=== PATIENT | female | born 1990 | race Caucasian/White ===

== ENCOUNTER 2018-11-25 20:30 | Emergency (ER) | payer MEDICAID, OTHER ==
[~2018-11-25] VITALS: Ht 165.1 cm; Wt 70.8 kg
[2018-11-25] MEDS ORDERED: niCARdipine IV FOR DRIP 50 MG KIT ONE (20:46)
[2018-11-25] MEDS ORDERED: NS (IVPB) 250 ML ONE (20:46)
[2018-11-25] MEDS ORDERED: morphine INJ 10 MG/ML 1ML (SYR OR VIAL) ONE (20:51)
[2018-11-25] MEDS ORDERED: morphine INJ 10 MG/ML 1ML (SYR OR VIAL) IVP STA (20:54)
[2018-11-25 21:02] LABS: BASOPHILS % (AUTO) 0 % (0-10); EOSINOPHILS % (AUTO) 0 % (0-10); HEMATOCRIT 38 % (35-52); HEMOGLOBIN 11.7 G/DL (11.5-16.0); LYMPHOCYTES # (AUTO) 1.2 X 10^3 (1.0-4.0); LYMPHOCYTES % (AUTO) 8 % (12-44); MEAN CORPUSCULAR HEMOGLOBIN 23 PG (25-34); MEAN CORPUSCULAR HGB CONC 31 G/DL (32-36); MEAN CORPUSCULAR VOLUME 73 FL (80-99); MEAN PLATELET VOLUME 10.5 FL (7.4-10.4); MONOCYTES # (AUTO) 0.4 X 10^3 (0.0-1.0); MONOCYTES % (AUTO) 3 % (0-12); NEUTROPHILS # (AUTO) 14.4 X 10^3 (1.8-7.8); NEUTROPHILS % (AUTO) 90 % (42-75); PLATELET COUNT 530 10^3/uL (130-400); RED CELL DISTRIBUTION WIDTH 17.2 % (10.0-14.5)
--- NOTE | 2018-11-25 21:05 | ED Cough/URI ---
General Chief Complaint: Respiratory Problems Stated Complaint: SOA - FEET/HANDS SWELLING Nursing Triage Note: pt verbalized short of breath, lower extremity swelling, states due to elevated blood pressure. states x 1.5 weeks. Sepsis Screen: No Definite Risk Source: patient Exam Limitations: no limitations History of Present Illness Date Seen by Provider: Nov 25, 2018 Time Seen by Provider: 21:02 Initial Comments To ER or come in by her mother with reports of swelling in her feet for the past week, elevated blood pressure, shortness of breath. She states that she has kidney failure, congestive heart failure. She is on Imdur because she recently failed a stress test. She states that her blood pressure has been in the 260/100 range for many years leading to cardiomyopathy. She follows with Dr. Morales in [place]. She states that her chronic pain causes her blood pressure to spike and no one will treat her chronic pain. Timing/Duration: constant Severity/Quality: moderate Associated Symptoms: shortness of breath Allergies and Home Medications Allergies Coded Allergies: NSAIDS (Non-Steroidal Anti-Inflamma (Verified Allergy, Unknown, 11/25/18) Patient Home Medication List Home Medication List Reviewed: Yes Review of Systems Review of Systems Constitutional: see HPI EENTM: see HPI Respiratory: no symptoms reported, short of breath Cardiovascular: see HPI; No chest pain; edema, palpitations Genitourinary: no symptoms reported Musculoskeletal: no symptoms reported Skin: no symptoms reported Psychiatric/Neurological: No Symptoms Reported Hematologic/Lymphatic: No Symptoms Reported Immunological/Allergic: no symptoms reported Past Nastqal-Kucoys-Lrjrwg Hx Patient Social History Recent Foreign Travel: No Contact w/Someone Who Travel: No Recent Infectious Disease Expo: No Physical Exam Vital Signs - First Documented 11/25/18 20:41 Temp 98.2 Pulse 114 Resp 18 B/P (MAP) 128/86 (100) Pulse Ox 100 O2 Delivery Room Air Capillary Refill : Less Than 3 Seconds Height: 5'5.00" Weight: 156lbs. oz. 70.414312nl; BMI Method:Estimated General Appearance: WD/WN, no apparent distress, other (on each of 3 different readings, the systolic is unmeasurable high, the diastolic measures between 203 and 208. Patient states that she has a history of this and when given pain medication and her blood pressure drops rapidly. I'll entertain this idea briefly and give 1 dose of pain medication (4 mg morphine) and evaluate response.) Eyes: Bilateral Eye Normal Inspection, Bilateral Eye PERRL, Bilateral Eye EOMI HEENT: PERRL/EOMI, normal ENT inspection, other (there is no jugular vein distention. Lung sounds are diminished but there is no obvious crackles or pink frothy sputum. She speaks in full sentences) Respiratory: no respiratory distress, no accessory muscle use Extremities: normal range of motion, non-tender, other (2+ pitting edema) Neurologic/Psychiatric: alert, normal mood/affect, oriented x 3 Skin: normal color, warm/dry Progress/Results/Core Measures Suspected Sepsis Recent Fever Within 48 Hours: No Infection Criteria Present: None New/Unexplained Altered Menta: No Sepsis Screen: No Definite Risk SIRS Temperature:98.2 Pulse: 114 Respiratory Rate: 18 Laboratory Tests 11/25/18 20:44: White Blood Count 16.0H Blood Pressure 128 /86 Mean: 100 Laboratory Tests 11/25/18 20:44: Creatinine 3.03H, Platelet Count 530H, Total Bilirubin 0.8 Results/Orders Lab Results Laboratory Tests Test 11/25/18 20:44 Range/Units White Blood Count 16.0 H 4.3-11.0 10^3/uL Red Blood Count 5.21 4.35-5.85 10^6/uL Hemoglobin 11.7 11.5-16.0 G/DL Hematocrit 38 35-52 % Mean Corpuscular Volume 73 L 80-99 FL Mean Corpuscular Hemoglobin 23 L 25-34 PG Mean Corpuscular Hemoglobin Concent 31 L 32-36 G/DL Red Cell Distribution Width 17.2 H 10.0-14.5 % Platelet Count 530 H 130-400 10^3/uL Mean Platelet Volume 10.5 H 7.4-10.4 FL Neutrophils (%) (Auto) 90 H 42-75 % Lymphocytes (%) (Auto) 8 L 12-44 % Monocytes (%) (Auto) 3 0-12 % Eosinophils (%) (Auto) 0 0-10 % Basophils (%) (Auto) 0 0-10 % Neutrophils # (Auto) 14.4 H 1.8-7.8 X 10^3 Lymphocytes # (Auto) 1.2 1.0-4.0 X 10^3 Monocytes # (Auto) 0.4 0.0-1.0 X 10^3 Eosinophils # (Auto) 0.0 0.0-0.3 10^3/uL Basophils # (Auto) 0.0 0.0-0.1 10^3/uL Neutrophils % (Manual) 94 % Lymphocytes % (Manual) 4 % Monocytes % (Manual) 2 % Eosinophils % (Manual) 0 % Basophils % (Manual) 0 % Nucleated Red Blood Cells 1 Polychromasia SLIGHT Hypochromasia SLIGHT Anisocytosis SLIGHT Microcytosis SLIGHT Sodium Level 132 L 135-145 MMOL/L Potassium Level 3.6 3.6-5.0 MMOL/L Chloride Level 97 L 98-107 MMOL/L Carbon Dioxide Level 19 L 21-32 MMOL/L Anion Gap 16 H 5-14 MMOL/L Blood Urea Nitrogen 49 H 7-18 MG/DL Creatinine 3.03 H 0.60-1.30 MG/DL Estimat Glomerular Filtration Rate 19 BUN/Creatinine Ratio 16 Glucose Level 160 H 70-105 MG/DL Calcium Level 9.7 8.5-10.1 MG/DL Corrected Calcium 10.4 H 8.5-10.1 MG/DL Total Bilirubin 0.8 0.1-1.0 MG/DL Aspartate Amino Transf (AST/SGOT) 42 H 5-34 U/L Alanine Aminotransferase (ALT/SGPT) 40 0-55 U/L Alkaline Phosphatase 82 40-136 U/L Troponin I 0.255 H <0.028 NG/ML B-Type Natriuretic Peptide 08322.6 H <100.0 PG/ML Total Protein 6.7 6.4-8.2 GM/DL Albumin 3.1 L 3.2-4.5 GM/DL Thyroid Stimulating Hormone (TSH) 2.56 0.35-4.94 UIU/ML Free Thyroxine 1.12 0.70-1.48 NG/DL Serum Test, Qualitative NEGATIVE NEGATIVE My Orders Orders - HATTIE PRESTON APRN Morphine Injection (Morphine Injection (11/25/18 20:54) Cbc With Automated Diff (11/25/18 20:54) Comprehensive Metabolic Panel (11/25/18 20:54) Troponin I (11/25/18 20:54) BNP (11/25/18 20:54) Hcg,Qualitative Serum (11/25/18 20:54) Thyroid Stimulating Hormone (11/25/18 20:54) Free T4 (Free Thyroxine) (11/25/18 20:54) Drug Screen Stat (Urine) (11/25/18 20:54) Morphine Injection (Morphine Injection (11/25/18 20:51) Manual Differential (11/25/18 20:44) Ns (Ivpb) (Sodium C... W/Diltiazem Iv Fo (11/25/18 21:30) Ct Head Wo (11/25/18 21:20) Chest 1 View, Ap/Pa Only (11/25/18 21:20) Ekg Tracing (11/25/18 20:30) Furosemide Injection (Lasix Injection) (11/25/18 21:45) Ns (Ivpb) (Sodium C... W/Nicardipine Iv (11/25/18 22:00) Vanillymandelic Acid Random Ur (11/25/18 22:32) Metanephrines Plasma (11/25/18 22:34) Iv Heplock-Insert (Order) (11/25/18 22:37) Medications Given in ED Current Medications Medications Dose Ordered Sig/Nathaly Route Start Time Stop Time Status Last Admin Dose Admin Furosemide 40 mg ONCE ONCE IVP 11/25/18 21:45 11/25/18 21:46 DC 11/25/18 21:51 40 MG Vital Signs/I&O 11/25/18 20:41 Temp 98.2 Pulse 114 Resp 18 B/P (MAP) 128/86 (100) Pulse Ox 100 O2 Delivery Room Air Capillary Refill : Less Than 3 Seconds Blood Pressure Mean: 100 Diagnostic Imaging Diagonstic Imaging: Xray, CT Plain Films/CT/US/NM/MRI: chest Comments NAME: WARREN CASTRO [facility] REC#: [id number] PT STATUS: REG ER : 1990 PHYSICIAN: HATTIE PRESTON APRN ADMIT DATE: 11/25/18/ER Draft Date of Exam:11/25/18 CT HEAD WO PROCEDURE: CT head without contrast. TECHNIQUE: Multiple contiguous axial images were obtained through the brain without the use of intravenous contrast. Auto Exposure Controls were utilized during the CT exam to meet ALARA standards for radiation dose reduction. INDICATION: Hypertension. No priors. There is no intracerebral hemorrhage. There is no hydrocephalus, edema, mass or mass effect. Basilar cisterns are patent and there are no findings of an elevation to the intracranial pressures. Orbits, sinuses, and calvarium appeared nonacute. IMPRESSION: No hemorrhage, edema or acute appearing abnormalities. Dictated on workstation # [id number] Dict: 11/25/182138 Trans: 11/25/182141 TAWANA [id number] Interpreted by: JOSE MACIAS Electronically signed by: NAME: WARREN CASTRO [facility] REC#: [id number] PT STATUS: REG ER : 1990 PHYSICIAN: HATTIE PRESTON APRN ADMIT DATE: 11/25/18/ER Draft Date of Exam:11/25/18 CHEST 1 VIEW, AP/PA ONLY INDICATION: Hypertension FINDINGS: The lungs clear. The heart and vessels normal. There is no effusion or pneumothorax. IMPRESSION: No acute appearing abnormality Dictated on workstation # [id number] Dict: 11/25/182134 Trans: 11/25/182138 TAWANA [id number] Interpreted by: JOSE MACIAS Electronically signed by: Departure Communication (Admissions) 2123-blood pressure is 257/199 10 minutes after 4 mg of morphine. Cardene drip started at 5 mg an hour. 2199-Cardene drip has the pressure at 168/110. I'll have the nurses back off on the drip just a bit, I would like the systolic around 180. I spoke with Dr. Patterson, hospitalist at [facility]. She accepts the patient to the TCU floor. 2231-Cardene drip has been a 2.5 mg an hour. Despite this blood pressure is still dropping at 138/98. We will stop the Cardene drip. Given this brief spike in blood pressure and heart rate, pheochromocytoma would be within the differential. 2239-care turned over to Dr. Montague pending transfer to [facility]. Impression Primary Impression: Hypertensive urgency Disposition: XF SHT-TRM HOSP Condition: Stable Departure-Patient Inst. Referrals: NO,LOCAL PHYSICIAN (PCP/Family) Primary Care Physician HATTIE PRESTON APRN Nov 25, 2018 21:05
--- NOTE | 2018-11-25 21:09 | NUR ---
Morphine given @ 2058. After 10 minutes pt now rates pain 06/07. Reports decrease in headache. Bp @ this time 246/199. Provider notified.
[2018-11-25 21:19] LABS: ALBUMIN 3.1 GM/DL (3.2-4.5); BILIRUBIN,TOTAL 0.8 MG/DL (0.1-1.0); CALCIUM 9.7 MG/DL (8.5-10.1); CREATININE SERUM 3.03 MG/DL (0.60-1.30); POTASSIUM 3.6 MMOL/L (3.6-5.0); TOTAL PROTEIN 6.7 GM/DL (6.4-8.2)
[2018-11-25] MEDS ORDERED: DILTIAZEM IV FOR DRIP 125 MG in NS (IVPB) 100 ML IV SCH (21:30)
[2018-11-25 21:31] LABS: ANISOCYTOSIS SLIGHT; BASOPHILS % (MANUAL) 0 %; EOSINOPHILS % (MANUAL) 0 %; HYPOCHROMASIA SLIGHT; LYMPHOCYTES % (MANUAL) 4 %; MICROCYTOSIS SLIGHT; MONOCYTES % (MANUAL) 2 %; NEUTROPHILS % (MANUAL) 94 %; NUCLEATED RED BLOOD CELLS 1; POLYCHROMASIA SLIGHT
--- NOTE | 2018-11-25 21:40 | Diagnostic Imaging Report ---
INDICATION: Hypertension FINDINGS: The lungs clear. The heart and vessels normal. There is no effusion or pneumothorax. IMPRESSION: No acute appearing abnormality Dictated by: Dictated on workstation # [id number]
--- NOTE | 2018-11-25 21:43 | Diagnostic Imaging Report ---
PROCEDURE: CT head without contrast. TECHNIQUE: Multiple contiguous axial images were obtained through the brain without the use of intravenous contrast. Auto Exposure Controls were utilized during the CT exam to meet ALARA standards for radiation dose reduction. INDICATION: Hypertension. No priors. There is no intracerebral hemorrhage. There is no hydrocephalus, edema, mass or mass effect. Basilar cisterns are patent and there are no findings of an elevation to the intracranial pressures. Orbits, sinuses, and calvarium appeared nonacute. IMPRESSION: No hemorrhage, edema or acute appearing abnormalities. Dictated by: Dictated on workstation # [id number]
[2018-11-25 21:45] LABS: FREE T4 (FREE THYROXINE) 1.12 NG/DL (0.70-1.48)
[2018-11-25] MEDS ORDERED: FUROSEMIDE 40 MG/4 ML INJ (LASIX) IVP ONE (21:45)
--- NOTE | 2018-11-25 21:50 | NUR ---
IV cardene decreased to 2.5mg/hr (12.5ml/hr) per provider order. Current BP 226/172
[2018-11-25] MEDS ORDERED: niCARdipine IV 50 MG in NS (IVPB) 230 ML IV SCH (22:00)
--- NOTE | 2018-11-25 22:00 | NUR ---
Per provider order Cardene increased to initial starting dose of 5mg/hr (25ml/hr).
--- NOTE | 2018-11-25 22:18 | NUR ---
Cardene decreased to 2.5mg/hr per provider order.
--- NOTE | 2018-11-25 22:30 | NUR ---
Cardene drip stopped per provider order d/t BP 135/98.
[2018-11-25 22:58] LABS: AMPHETAMINE SCREEN, URINE NEGATIVE (NEGATIVE); BARBITURATE SCREEN URINE NEGATIVE (NEGATIVE); BENZODIAZEPINES SCREEN URINE POSITIVE (NEGATIVE); CANNABINOID SCREEN, URINE NEGATIVE (NEGATIVE); COCAINE SCREEN URINE NEGATIVE (NEGATIVE); METHAMPHETAMINE SCREEN URINE S NEGATIVE (NEGATIVE); OPIATE SCREEN URINE POSITIVE (NEGATIVE); TRICYCLIC ANTIDEPRESSANTS SCRE NEGATIVE (NEGATIVE)
[2018-11-25 22:59] LABS: METHADONE STAT NEGATIVE (NEGATIVE); OXYCODONE STAT POSITIVE (NEGATIVE); PROPOXYPHENE STAT NEGATIVE (NEGATIVE)
--- NOTE | 2018-11-25 23:42 | NUR ---
Contacted cc ems ship manager @ [phone]. Contacted cc dispatch for request cc ems pt transfer to [facility].
--- NOTE | 2018-11-25 23:55 | NUR ---
Pt report given to RADHA Velasco @ [facility]. Upon arrival to [facility] pt to U#[id number].
[2018-11-26 00:35] VITALS: BP 184/131
== END 2018-11-26 00:35 | disposition short-term general hospital (02) ==
LOC: ER 20:33
DX: I16.0 Hypertensive urgency (principal); I11.0 Hypertensive heart disease with heart failure; I50.9 Heart failure, unspecified; Z88.6 Allergy status to analgesic agent
CPT/HCPCS: 36415; 70450; 71045; 80053; 80306; 83835; 83880; 84439; 84443; 84484; 84585; 84703; 85007; 85027; 93005; 96374; 96375

== ENCOUNTER 2018-12-22 02:55 | Emergency (ER) | payer MEDICAID ==
[~2018-12-22] VITALS: Ht 165.1 cm; Wt 72.6 kg
[2018-12-22] MEDS ORDERED: ASPIRIN 81 MG CHEW (CHILDREN'S ASA) PO ONE (03:15)
--- NOTE | 2018-12-22 03:18 | ED Cardiac General ---
History of Present Illness General Chief Complaint: Respiratory Problems Stated Complaint: SOB Source: patient History of Present Illness Date Seen by Provider: Dec 22, 2018 Time Seen by Provider: 02:56 Initial Comments PT ARRIVES VIA POV FROM HOME IN [place] PT WITH MULTIPLE COMPLAINTS C/O SHORTNESS OF BREATH, WITH ORTHOPNEA C/O "HEAD PAIN AND IT'S GONE ALL THE WAY DOWN TO MY LEGS" -STATES SHE HAS "CHRONIC MIGRAINES" AND "HAS TO TAKE HYDROCODONE TO CONTROL THE PAIN" C/O SLIGHT CHEST PAIN C/O CHRONIC LEG SWELLING NO COUGH NO FEVER PT STATES "I HAVE HEART FAILURE AND RENAL FAILURE" STATES "ALL OF HER DOCTORS ARE AT [facility]" "BECAUSE I CAN'T GO TO [place] ANYMORE--THEY CAN'T DO ANYTHING-THEY THINK I'M LYING" PT IS NOT ON DIALYSIS HAS HISTORY OF HTN WELL. STATES "MY BLOOD PRESSURE GOES UP BECAUSE OF THE PAIN AND NO ONE WILL TREAT MY PAIN" --STATES HER CHRONIC PAIN IS HER LEFT KNEE AND HEADACHES---HAS NOT SEEN NEUROLOGIST FOR HEADACHES OR DOG BATHER FOR HER KNEE PAIN NOR HAS SHE SEE REPORTING MANAGER. PT HERE 11/25/18 FOR HYPERTENSIVE EMERGENCY, WITH UNMEASURABLE SYSTOLIC BP, AND DIASTOLIC OF 199-206--SEE THAT CHART FOR DETAILS PT WAS TRANSFERRED TO [facility] AT THAT TIME. PCP: NONE OXIDE FURNACE TENDER: DR. MCKENNA AT [facility] JACKSCREW WORKER: DR. QUIÑONES AT [facility] Allergies and Home Medications Allergies Coded Allergies: NSAIDS (Non-Steroidal Anti-Inflamma (Verified Allergy, Unknown, 11/25/18) Patient Home Medication List Home Medication List Reviewed: Yes Review of Systems Review of Systems Constitutional: no symptoms reported; No chills, No diaphoresis, No fever Respiratory: See HPI; Denies Cough; Orthopnea, Shortness of Air Cardiovascular: Chest Pain, Edema; Denies Lightheadedness, Denies Syncope Gastrointestinal: No Symptoms Reported Genitourinary: No Symptoms Reported, Other (LMP--NONE--S/P ENDOMETRIAL ABLATION) Musculoskeletal: see HPI Skin: no symptoms reported Psychiatric/Neurological: See HPI, Anxiety, Headache; Denies Numbness, Denies Paresthesia, Denies Tingling, Denies Weakness Endocrine: No Symptoms Reported Hematologic/Lymphatic: No Symptoms Reported Past Gdgupgk-Lxbusy-Peixaf Hx Patient Social History Alcohol Use: Rarely Uses Recreational Drug Use: Yes (PERCOCET ABUSE--STATES "NOW THEY GIVE ME HYDROCODONES" ) Drug of Choice: PERCOCET ABUSE--PT STATES "NOW THEY GIVE ME HYDROCODONES" Smoking Status: Never a Smoker 2nd Hand Smoke Exposure: Yes Recent Foreign Travel: No Contact w/Someone Who Travel: No Recent Hopitalizations: Yes ([facility] August 2018) Seasonal Allergies Seasonal Allergies: Yes Past Medical History Surgeries: Yes (Endometrail ablation. Ovarian cyst removal ) Section Respiratory: Yes Pneumonia Currently Using CPAP: No Currently Using BIPAP: No Cardiac: Yes (CHF) Chronic Edema/Swelling, Hypertension, Irregular Heartbeat Neurological: Yes Headaches /Migraines : No Reproductive Disorders: Yes (ENDOMETRIAL ABLATION) Female Reproductive Disorders: Ovarian Cyst Genitourinary: Yes Renal Failure Gastrointestinal: No Musculoskeletal: Yes (LEFT KNEE PAIN ) Endocrine: No HEENT: No Cancer: No Psychosocial: No Integumentary: No Blood Disorders: No Physical Exam Vital Signs Vital Signs - First Documented 12/22/18 12/22/18 02:56 05:30 Temp 97.8 Pulse 128 Resp 30 B/P (MAP) 117/96 (103) Pulse Ox 100 O2 Delivery Room Air O2 Flow Rate 2.00 Capillary Refill : Height, Weight, BMI Height: 5'5.00" Weight: 156lbs. oz. 70.428509pf; BMI Method:Estimated General Appearance: Anxious, Other (HYPERVENTILATING, TALKING VERY RAPIDLY, ANXIOUS, VERY DRAMATIC. THIS STOPS WHEN DISTRACTED, ALSO STOPS WHEN SHE IS TEXING/PLAYING ON PHONE DURING ER STAY. ) HEENT: PERRL/EOMI Neck: Normal Inspection; No Carotid Bruit, No JVD Respiratory: Normal Breath Sounds, No Accessory Muscle Use, No Respiratory Distress, Other (HYPERVENTILATING--STOPS WHEN DISTRACTED) Cardiovascular: No JVD, No Murmur, Normal Peripheral Pulses, Tachycardia Gastrointestinal: Non Tender, Soft Extremity: Normal Capillary Refill, Normal Range of Motion, Non Tender, No Calf Tenderness, Pedal Edema (1-2+ EDEMA BILATERALLY) Neurologic/Psychiatric: Alert, Oriented x3, No Motor/Sensory Deficits, dinkey locomotive operator II- XII Norm as Tested Skin: Normal Color, Warm/Dry Progress/Results/Core Measures Results/Orders Lab Results Laboratory Tests Test 12/22/18 03:00 12/22/18 03:44 Range/Units White Blood Count 13.5 H 4.3-11.0 10^3/uL Red Blood Count 5.95 H 4.35-5.85 10^6/uL Hemoglobin 12.4 11.5-16.0 G/DL Hematocrit 40 35-52 % Mean Corpuscular Volume 68 L 80-99 FL Mean Corpuscular Hemoglobin 21 L 25-34 PG Mean Corpuscular Hemoglobin Concent 31 L 32-36 G/DL Red Cell Distribution Width 20.5 H 10.0-14.5 % Platelet Count 383 130-400 10^3/uL Mean Platelet Volume 10.2 7.4-10.4 FL Neutrophils (%) (Auto) 87 H 42-75 % Lymphocytes (%) (Auto) 9 L 12-44 % Monocytes (%) (Auto) 3 0-12 % Eosinophils (%) (Auto) 0 0-10 % Basophils (%) (Auto) 0 0-10 % Neutrophils # (Auto) 11.8 H 1.8-7.8 X 10^3 Lymphocytes # (Auto) 1.3 1.0-4.0 X 10^3 Monocytes # (Auto) 0.4 0.0-1.0 X 10^3 Eosinophils # (Auto) 0.0 0.0-0.3 10^3/uL Basophils # (Auto) 0.0 0.0-0.1 10^3/uL Prothrombin Time 14.9 H 12.2-14.7 SEC INR Comment 1.1 0.8-1.4 Activated Partial Thromboplast Time 38 H 24-35 SEC Sodium Level 135 135-145 MMOL/L Potassium Level 2.8 L 3.6-5.0 MMOL/L Chloride Level 97 L 98-107 MMOL/L Carbon Dioxide Level 22 21-32 MMOL/L Anion Gap 16 H 5-14 MMOL/L Blood Urea Nitrogen 25 H 7-18 MG/DL Creatinine 2.92 H 0.60-1.30 MG/DL Estimat Glomerular Filtration Rate 19 BUN/Creatinine Ratio 9 Glucose Level 130 H 70-105 MG/DL Calcium Level 9.4 8.5-10.1 MG/DL Corrected Calcium 10.0 8.5-10.1 MG/DL Magnesium Level 1.7 1.6-2.4 MG/DL Total Bilirubin 1.0 0.1-1.0 MG/DL Aspartate Amino Transf (AST/SGOT) 23 5-34 U/L Alanine Aminotransferase (ALT/SGPT) 12 0-55 U/L Alkaline Phosphatase 93 40-136 U/L Total Creatine Kinase 137 29-168 U/L Creatine Kinase MB 4.0 <6.6 NG/ML Myoglobin 267.7 H 10.0-92.0 NG/ML Troponin I 0.097 H <0.028 NG/ML B-Type Natriuretic Peptide 7892.2 H <100.0 PG/ML Total Protein 7.5 6.4-8.2 GM/DL Albumin 3.2 3.2-4.5 GM/DL TSH [place] Testing 3.13 0.35-4.94 UIU/ML Serum Alcohol < 10 <10 MG/DL Urine Color YELLOW Urine Clarity CLEAR Urine pH 6 5-9 Urine Specific [place] 1.020 1.016-1.022 Urine Protein 4+ NEGATIVE Urine Glucose (UA) NEGATIVE NEGATIVE Urine Ketones NEGATIVE NEGATIVE Urine Nitrite NEGATIVE NEGATIVE Urine Bilirubin NEGATIVE NEGATIVE Urine Urobilinogen NORMAL NORMAL MG/DL Urine Leukocyte Esterase 1+ H NEGATIVE Urine RBC (Auto) 4+ H NEGATIVE Urine RBC 10-25 H /HPF Urine WBC 5-10 H /HPF Urine Squamous Epithelial Cells 5-10 /HPF Urine Crystals NONE /LPF Urine Bacteria FEW H /HPF Urine Casts PRESENT /LPF Urine Hyaline Casts 5-10 H /LPF Urine Mucus MODERATE H /LPF Urine Culture Indicated YES Urine Opiates Screen POSITIVE H NEGATIVE Urine Oxycodone Screen NEGATIVE NEGATIVE Urine Methadone Screen NEGATIVE NEGATIVE Urine Propoxyphene Screen NEGATIVE NEGATIVE Urine Barbiturates Screen NEGATIVE NEGATIVE Ur Tricyclic Antidepressants Screen NEGATIVE NEGATIVE Urine Phencyclidine Screen NEGATIVE NEGATIVE Urine Amphetamines Screen NEGATIVE NEGATIVE Urine Methamphetamines Screen NEGATIVE NEGATIVE Urine Benzodiazepines Screen NEGATIVE NEGATIVE Urine Cocaine Screen NEGATIVE NEGATIVE Urine Cannabinoids Screen NEGATIVE NEGATIVE My Orders Orders - SHADE MORALES DO Ed Iv/Invasive Line Start (12/22/18 03:01) Ekg Tracing (12/22/18 03:01) O2 (12/22/18 03:01) Monitor-Rhythm Ecg Trace Only (12/22/18 03:01) Alcohol (12/22/18 03:01) BNP (12/22/18 03:01) Cbc With Automated Diff (12/22/18 03:01) Comprehensive Metabolic Panel (12/22/18 03:01) Creatine Kinase (12/22/18 03:01) Creatine Kinase Mb (12/22/18 03:01) Drug Screen Stat (Urine) (12/22/18 03:01) Magnesium (12/22/18 03:01) Protime With Inr (12/22/18 03:01) Partial Thromboplastin Time (12/22/18 03:01) Thyroid Analyzer (12/22/18 03:01) Ua Culture If Indicated (12/22/18 03:01) Myoglobin Serum (12/22/18 03:01) Troponin I (12/22/18 03:01) Chest 1 View, Ap/Pa Only (12/22/18 03:01) Aspirin Chewable Tablet (Baby Aspirin Ch (12/22/18 03:15) Ondansetron Injection (Zofran Injectio (12/22/18 03:45) Urine Culture (12/22/18 03:44) Ct Chest Wo (12/22/18 04:18) Ns (Ivpb) (Sodium C... W/Nicardipine Iv (12/22/18 04:30) Nicardipine Iv For Drip (Cardene I.V. (O (12/22/18 04:16) Metoprolol Tartrate Injection (Lopressor (12/22/18 04:30) Ns (Ivpb) (Sodium Chloride 0.9%) (12/22/18 04:17) Lorazepam Injection (Ativan Injection) (12/22/18 05:15) Furosemide Injection (Lasix Injection) (12/22/18 05:15) Nitroglycerin Ointment (Nitrobid Ointme (12/22/18 05:15) Hydrocodone/Apap 10/325 Tablet (Lortab 1 (12/22/18 05:15) Potassium Chloride (Tablet) (Klor Con Ta (12/22/18 06:00) Potassium Chloride (Tablet) (Klor Con Ta (12/22/18 06:00) Medications Given in ED Current Medications Medications Dose Ordered Sig/Nathaly Route Start Time Stop Time Status Last Admin Dose Admin Acetaminophen/ Hydrocodone Bitart 1 ea ONCE ONCE PO 12/22/18 05:15 12/22/18 05:16 DC 12/22/18 05:15 1 EA Aspirin 324 mg ONCE ONCE PO 12/22/18 03:15 12/22/18 03:16 DC 12/22/18 03:19 324 MG Furosemide 80 mg ONCE ONCE IVP 12/22/18 05:15 12/22/18 05:16 DC 12/22/18 05:16 80 MG Lorazepam 2 mg ONCE ONCE IVP 12/22/18 05:15 12/22/18 05:16 DC 12/22/18 05:16 2 MG Metoprolol Tartrate 5 mg ONCE ONCE IV 12/22/18 04:30 12/22/18 04:32 DC 12/22/18 04:32 5 MG Nitroglycerin 1 inch ONCE ONCE TOP 12/22/18 05:15 12/22/18 05:16 DC 12/22/18 05:16 1 INCH Ondansetron HCl 8 mg ONCE ONCE IVP 12/22/18 03:45 12/22/18 03:47 DC 12/22/18 03:52 8 MG Potassium Chloride 40 meq ONCE ONCE PO 12/22/18 06:00 12/22/18 06:20 DC 12/22/18 06:08 40 MEQ Vital Signs/I&O 12/22/18 12/22/18 12/22/18 02:56 04:36 05:30 Temp 97.8 Pulse 128 96 Resp 30 30 B/P (MAP) 117/96 (103) 240/192 Pulse Ox 100 100 O2 Delivery Room Air Nasal Cannula O2 Flow Rate 2.00 Progress Progress Note : Progress Note BP READINGS EXTREMELY VARIABLE FROM ONE ARM TO THE OTHER AND FROM MINUTE TO MINUTE IN THE SAME ARM, ON ARRIVAL. THEN DURING COURSE OF ER STAY, PT IS MOVING ALL OVER, ON AND OFF THE BED AND LEANING ACROSS THE BED, RESTING ON HER ARMS AND ELBOWS, ETC. SOBBING BUT NO TEARS BLOOD PRESSURES CONSISTENTLY HIGH NOW--250'S/190'S --LOPRESSOR GIVEN AND STARTED ON CARDENE DRIP. PT STATES "THE ONLY THING THAT WILL GET IT TO COME DOWN IS PAIN MEDICATION" STATES SHE HURTS ''ALL OVER" GIVEN MEDICATIONS FOR ANXIETY, GIVEN HYDROCODONE GIVEN LASIX AND NITROPASTE FOR CHF PAIN AND SHORTNESS OF BREATH IMPROVED. BP DOWN TO 140'S/100'S AT TIME OF TRANSFER PT FEELING MUCH BETTER Initial ECG Impression Date: Dec 22, 2018 Initial ECG Impression Time: 03:12 Initial ECG Rate: 117 Initial ECG Rhythm: S.Tach Diagnostic Imaging Comments CXR--MILD CARDIOMEGALY, MINIMAL VASCULAR CONGESTION--PENDING RADIOLOGIST REVIEW CT CHEST--MILD CARDIOMEGALY WITH MODERATE BILATERAL PLEURAL EFFUSIONS, TRACE PERICARDIAL EFFUSION, 4.3 CM ASCENDING AORTIC ANEURYSM PER [facility] VIA FAX AT 0524 Reviewed: Reviewed by Nm Departure Communication (Admissions) 0529--CALLED [facility], HAVE BEDS. PAGING HOSPITALIST. 0555--SPOKE WITH DR. JOHNSON, ACCEPTS PT FOR ADMIT TO ICU, NO ADDITIONAL RECOMMENDATIONS AT THIS TIME. Impression Primary Impression: Hypertensive crisis Additional Impressions: Elevated troponin Chronic renal failure Ascending aortic aneurysm ACUTE ON CHRONIC CHF Anxiety Chronic prescription opiate use SVT (supraventricular tachycardia) Disposition: 02 XFER SHT-TRM HOSP Condition: Improved Transfer Transfer Facility: [facility] Method of Transfer: EMS Departure-Patient Inst. Referrals: NO,LOCAL PHYSICIAN (PCP/Family) Primary Care Physician SHADE MORALES DO Dec 22, 2018 03:18
[2018-12-22 03:22] LABS: BASOPHILS % (AUTO) 0 % (0-10); EOSINOPHILS % (AUTO) 0 % (0-10); HEMATOCRIT 40 % (35-52); HEMOGLOBIN 12.4 G/DL (11.5-16.0); LYMPHOCYTES # (AUTO) 1.3 X 10^3 (1.0-4.0); LYMPHOCYTES % (AUTO) 9 % (12-44); MEAN CORPUSCULAR HEMOGLOBIN 21 PG (25-34); MEAN CORPUSCULAR HGB CONC 31 G/DL (32-36); MEAN CORPUSCULAR VOLUME 68 FL (80-99); MEAN PLATELET VOLUME 10.2 FL (7.4-10.4); MONOCYTES # (AUTO) 0.4 X 10^3 (0.0-1.0); MONOCYTES % (AUTO) 3 % (0-12); NEUTROPHILS # (AUTO) 11.8 X 10^3 (1.8-7.8); NEUTROPHILS % (AUTO) 87 % (42-75); PLATELET COUNT 383 10^3/uL (130-400); RED CELL DISTRIBUTION WIDTH 20.5 % (10.0-14.5); WHITE BLOOD COUNT 13.5 10^3/uL (4.3-11.0)
[2018-12-22 03:27] LABS: INR 1.1 (0.8-1.4); PROTHROMBIN TIME PATIENT 14.9 SEC (12.2-14.7)
--- NOTE | 2018-12-22 03:30 | NUR ---
Provider notified of current BP of 253/198. Addendum: 12/22/18 at 0332 by SANDRA See attached trending BP's.
[2018-12-22 03:37] LABS: ALANINE AMINOTRANSFERASE 12 U/L (0-55); ALBUMIN 3.2 GM/DL (3.2-4.5); ALKALINE PHOSPHATASE 93 U/L (40-136); BUN/CREATININE RATIO 9; CALCIUM 9.4 MG/DL (8.5-10.1); CARBON DIOXIDE 22 MMOL/L (21-32); CHLORIDE 97 MMOL/L (98-107); CREATINE KINASE 137 U/L (29-168); CREATININE SERUM 2.92 MG/DL (0.60-1.30); GFR ESTIMATED 19; GLUCOSE 130 MG/DL (70-105); MAGNESIUM 1.7 MG/DL (1.6-2.4); POTASSIUM 2.8 MMOL/L (3.6-5.0); SODIUM 135 MMOL/L (135-145); TOTAL PROTEIN 7.5 GM/DL (6.4-8.2)
[2018-12-22] MEDS ORDERED: ONDANSETRON 4 MG/2 ML (SDV) Z0FRAN IVP ONE (03:45)
[2018-12-22 03:57] LABS: TSH (THYROID ANALYZER) 3.13 UIU/ML (0.35-4.94)
[2018-12-22 04:08] LABS: BILIRUBIN,URINE NEGATIVE (NEGATIVE); CLARITY,URINE CLEAR; COLOR,URINE YELLOW; GLUCOSE, URINE (UA) NEGATIVE (NEGATIVE); KETONES,URINE NEGATIVE (NEGATIVE); LEUKOCYTE ESTERASE ,URINE 1+ (NEGATIVE); NITRITE,URINE NEGATIVE (NEGATIVE); PH,URINE 6 (5-9); PROTEIN,URINE 4+ (NEGATIVE); UROBILINOGEN,URINE NORMAL (NORMAL)
[2018-12-22] MEDS ORDERED: niCARdipine IV FOR DRIP 50 MG KIT ONE (04:16)
[2018-12-22 04:17] LABS: BACTERIA,URINE FEW /HPF
[2018-12-22] MEDS ORDERED: NS (IVPB) 250 ML ONE (04:17)
[2018-12-22 04:23] LABS: AMPHETAMINE SCREEN, URINE NEGATIVE (NEGATIVE); BARBITURATE SCREEN URINE NEGATIVE (NEGATIVE); BENZODIAZEPINES SCREEN URINE NEGATIVE (NEGATIVE); CANNABINOID SCREEN, URINE NEGATIVE (NEGATIVE); COCAINE SCREEN URINE NEGATIVE (NEGATIVE); METHADONE STAT NEGATIVE (NEGATIVE); METHAMPHETAMINE SCREEN URINE S NEGATIVE (NEGATIVE); OPIATE SCREEN URINE POSITIVE (NEGATIVE); OXYCODONE STAT NEGATIVE (NEGATIVE); PROPOXYPHENE STAT NEGATIVE (NEGATIVE); TRICYCLIC ANTIDEPRESSANTS SCRE NEGATIVE (NEGATIVE)
[2018-12-22] MEDS ORDERED: niCARdipine IV 50 MG in NS (IVPB) 230 ML IV SCH (04:30)
[2018-12-22] MEDS ORDERED: meTOprolol 5 MG/5 ML (LOPRESSOR) VIAL IV ONE (04:30)
--- NOTE | 2018-12-22 04:35 | NUR ---
Pt noted to be restless, tearful, and moaning in pain. Provider notified of pt continued request for pain medication.
[2018-12-22] MEDS ORDERED: HYDROcodone/APAP 10 MG/325 MG (LORTAB) TAB PO ONE (05:15)
[2018-12-22] MEDS ORDERED: LORazepam INJ 2 MG/ML (ATIVAN) VIAL IVP ONE (05:15)
[2018-12-22] MEDS ORDERED: NITROGLYCERIN 2% OINT 1 GM UNIT DOSE PACKET TOP ONE (05:15)
[2018-12-22] MEDS ORDERED: FUROSEMIDE 40 MG/4 ML INJ (LASIX) IVP ONE (05:15)
[2018-12-22] MEDS ORDERED: KCL 10 MEQ TAB (MICRO K) PO ONE ×2 (06:00)
--- NOTE | 2018-12-22 06:21 | NUR ---
Contacted [facility] mba internship for request ems transfer to [facility]. Contacted [facility] bar gauger and lubricator tender dept. for request ems transfer to [facility].
--- NOTE | 2018-12-22 06:24 | NUR ---
Pt report called to RADHA Cortez @ [facility]. Dana voices no further questions or concerns regarding pt transfer.
--- NOTE | 2018-12-22 06:39 | NUR ---
Cardene infusion decreased to 2.5mg/hr per provider order. Current BP 148/106
[2018-12-22 06:57] VITALS: BP 140/108
--- NOTE | 2018-12-22 07:55 | Diagnostic Imaging Report ---
Indication: Shortness of air, chest pain Comparison: 11/25/2018 Technique: Single radiograph of the chest dated 12/05/2018. Findings: The cardiac silhouette is upper limits of normal in size. No significant pulmonary vascular congestion. Mild left basilar pulmonary opacities are present. Otherwise, the lungs appear clear. Trace left pleural effusion. No significant right pleural effusion. No pneumothorax. No acute osseous abnormality. Surgical clips within right upper quadrant of the abdomen. Impression: Minimal left basilar atelectasis and/or pneumonitis. This is associated with trace left pleural effusion. Dictated by: Dictated on workstation # [id number]
--- NOTE | 2018-12-22 08:51 | Diagnostic Imaging Report ---
PROCEDURE: CT chest without contrast. TECHNIQUE: Multiple contiguous axial images were obtained through the chest without the use of intravenous contrast. Auto Exposure Controls were utilized during the CT exam to meet ALARA standards for radiation dose reduction. INDICATION: Shortness of breath and chest pain. COMPARISON: No comparison available. FINDINGS: The left ventricle appears mildly dilated. There is a mild ascending aortic aneurysm measuring up to 4.5 cm. A trace amount of pericardial fluid is noted. No axillary or supraclavicular lymphadenopathy. Prominent mediastinal lymph nodes are not enlarged. There are small to moderate bilateral pleural effusions with overlying atelectasis. No edema or pneumonia. No suspicious pulmonary nodules. Limited views of the upper abdomen reveal changes of cholecystectomy. IMPRESSION: 1. Mildly dilated left ventricle and mild ascending aortic aneurysm. In a patient of this age, I would wonder if this patient has a bicuspid aortic valve leading to the aortic aneurysm. 2. Small to moderate bilateral pleural effusions . Dictated by: Dictated on workstation # [id number]
== END 2018-12-22 07:00 | disposition short-term general hospital (02) ==
LOC: EDUNIT# 02:55 → ER 02:57
DX: I16.9 Hypertensive crisis, unspecified (principal); R77.8 Other specified abnormalities of plasma proteins; I12.9 Hypertensive chronic kidney disease with stage 1 through stage 4 chronic kidney disease, or unspecified chronic kidney disease; N18.9 Chronic kidney disease, unspecified; I71.2 Thoracic aortic aneurysm, without rupture; I50.9 Heart failure, unspecified; F41.9 Anxiety disorder, unspecified; I47.1 Supraventricular tachycardia; G43.909 Migraine, unspecified, not intractable, without status migrainosus; Z79.891 Long term (current) use of opiate analgesic; Z88.6 Allergy status to analgesic agent; Z87.01 Personal history of pneumonia (recurrent)
CPT/HCPCS: 36415; 71045; 71250; 80053; 80306; 80320; 81000; 82550; 82553; 83735; 83874; 83880; 84443; 84484; 85025; 85610; 85730; 87088; 93005; 93041

== ENCOUNTER 2019-05-26 15:35 | Emergency (ER) | payer MEDICAID ==
[~2019-05-26] VITALS: Ht 165 cm; Wt 72.7 kg
[2019-05-26 15:59] LABS: BILIRUBIN,URINE NEGATIVE (NEGATIVE); CLARITY,URINE CLOUDY; COLOR,URINE YELLOW; GLUCOSE, URINE (UA) NEGATIVE (NEGATIVE); KETONES,URINE NEGATIVE (NEGATIVE); LEUKOCYTE ESTERASE ,URINE TRACE (NEGATIVE); NITRITE,URINE NEGATIVE (NEGATIVE); PROTEIN,URINE 3+ (NEGATIVE)
--- NOTE | 2019-05-26 16:00 | ED GI ---
General Chief Complaint: Abdominal/GI Problems Stated Complaint: ABD PAIN Nursing Triage Note: PATIENT AMBULATORY TO ER ROOM 5 WITH MOTHER. PT STATES SHE WAS SEEN AT [facility] TODAY AMD WAS SENT TO ER FOR ABDOMINAL PAIN AND HYPERTENSION. PT STATES PAIN BEGAN 3 DAYS AGO TO THE LEFT LOWER ABDOMEN THAT RADIATES INTO THE LOWER FLANK AREA. PATIENT ALSO STATES SHE HAS BURNING PAIN WITH URINATION. SHE HAS HAD NAUSEA AND VOMITING TODAY. PATIENT STATES SHE HAS A HISTORY OF KIDNEY FAILURE AND IS ON THE TRANSPLANT LIST. Sepsis Screen: No Definite Risk Source of Information: Patient Exam Limitations: Other (UNABLE TO VERIFY ALL OF PT'S MEDICAL PROBLEMS--ALL ARE VERBAL FROM PT, AND NONE OF HER DR'S ADMIT HERE. ) History of Present Illness Date Seen by Provider: May 26, 2019 Time Seen by Provider: 15:48 Initial Comments PT ARRIVES VIA POV--STATES SHE WAS SENT TO ER BY HER CHAIRMAN PRESIDENT AND CHIEF EXECUTIVE OFFICER, DR. JACKSON--HAD JUST BEEN TO HIS OFFICE HERE IN [facility] STATES SHE HAS BEEN HAVING LOWER ABDOMINAL PAIN RADIATING TO LEFT FLANK FOR THE LAST 3 DAYS STATES SHE HAS NOT BEEN ABLE TO SLEEP FOR 3 DAYS DUE TO PAIN C/O NAUSEA AND VOMITED X 2 TODAY NO DIARRHEA OR CONSTIPATION, HAD A NORMAL BM LAST NIGHT DOES NOT KNOW IF SHE HAS HAD FEVER, BUT HAS BEEN HOT AND COLD WITH SWEATS. C/O PAIN/ BURNING ON URINATION PT HAS HYDROCODONE FOR CHRONIC PAIN COMPLAINTS, BUT CLAIMS SHE HAS NOT TAKEN ANY SINCE Friday05/23/19, AND TOOK "1/2 OF A PERCOCET" YESTERDAY MORNING, OTHERWISE SHE HAS NOT TAKEN ANYTHING ELSE FOR PAIN PT HAS HAD KIDNEY STONES AND THIS IS SIMILAR PT STATES SHE HAS HISTORY OF CHRONIC RENAL FAILURE, LUPUS, CAD/WA, CVA, AND SEVERE HTN--BP WAS EXTREMELY HIGH AT CHAIRMAN PRESIDENT AND CHIEF EXECUTIVE OFFICER'S OFFICE, SO TOLD TO COME HERE. PT IS NOT ON DIALYSIS AND HAS NEVER BEEN PT STATES "MY BLOOD PRESSURE IS UP BECAUSE I'M IN PAIN" PCP: DR. WINTER EDWARDS CHAIRMAN PRESIDENT AND CHIEF EXECUTIVE OFFICER: DR JACKSON AT [facility] WITH [facility]: DR. MCKENNA AT [facility] PT LIVES IN [place] Allergies and Home Medications Allergies Coded Allergies: NSAIDS (Non-Steroidal Anti-Inflamma (Verified Allergy, Unknown, 11/25/18) Patient Home Medication List Home Medication List Reviewed: Yes Review of Systems Review of Systems Constitutional: see HPI, chills, diaphoresis, fever Respiratory: No Symptoms Reported; Denies Cough, Denies Shortness of Air Cardiovascular: No Symptoms Reported; Denies Chest Pain, Denies Edema, Denies Lightheadedness, Denies Palpitations, Denies Syncope Gastrointestinal: See HPI, Abdominal Pain; Denies Constipated, Denies Diarrhea; Nausea, Vomiting Genitourinary: See HPI, Burning, Flank Pain, Pain Musculoskeletal: see HPI, back pain Skin: no symptoms reported Psychiatric/Neurological: No Symptoms Reported Endocrine: No Symptoms Reported Hematologic/Lymphatic: No Symptoms Reported Past Arcpdhv-[id number]-Eeksmo Hx Patient Social History Recreational Drug Use: Yes (PERCOCET ABUSE-STATES "NOW THEY GIVE MY HYDROCODONES" ) Drug of Choice: PERCOCET ABUSE--PT STATES "NOW THEY GIVE ME HYDROCODONES" 2nd Hand Smoke Exposure: Yes Recent Foreign Travel: No Contact w/Someone Who Travel: No Recent Infectious Disease Expo: No Recent Hopitalizations: Yes (August 2018) Seasonal Allergies Seasonal Allergies: Yes Past Medical History Surgeries: Yes (ENDOMETRIAL ABLATION; OVARIAN CYST REMOVAL) Section Respiratory: Yes Pneumonia Currently Using CPAP: No Currently Using BIPAP: No Cardiac: Yes (CHF) Chronic Edema/Swelling, Coronary Artery Disease, Heart Attack, Hypertension, Irregular Heartbeat Neurological: Yes Headaches /Migraines, Stroke : No (ENDOMETRIAL ABLASION) Reproductive Disorders: Yes (ENDOMETRIAL ABLATION) Female Reproductive Disorders: Menstrual Problems, Ovarian Cyst Genitourinary: Yes Bladder Infection, Kidney Stones, Renal Failure Gastrointestinal: No Musculoskeletal: Yes (LEFT KNEE PAIN ) Endocrine: Yes Lupus HEENT: No Cancer: No Psychosocial: No Integumentary: No Blood Disorders: No Physical Exam Vital Signs Vital Signs - First Documented 05/26/19 15:37 Temp 36.2 Pulse 82 Resp 20 B/P (MAP) 231/167 (188) Pulse Ox 97 O2 Delivery Room Air Capillary Refill : Less Than 3 Seconds Height/Weight/BMI Height: 5'5.00" Weight: 160lbs. oz. 72.741713vp; 26.00 BMI Method:Stated General Appearance: WD/WN, no apparent distress, other (WALKS UPRIGHT, AND SITS IVORIAN-STYLE WITHOUT DIFFICULTY) Neck: normal inspection Respiratory: normal breath sounds, no respiratory distress, no accessory muscle use Cardiovascular: regular rate, rhythm, no murmur Gastrointestinal: soft Extremities: normal inspection, no pedal edema, normal capillary refill Neurologic/Psychiatric: patrol officer II-XII nml as tested, no motor/sensory deficits, alert, normal mood/affect, oriented x 3 Skin: normal color, warm/dry Progress/Results/Core Measures Results/Orders Lab Results Laboratory Tests Test 05/26/19 15:52 05/26/19 15:55 05/26/19 16:02 Range/Units Urine Color YELLOW Urine Clarity CLOUDY Urine pH 6.0 5-9 Urine Specific [place] >=1.030 1.016-1.022 Urine Protein 3+ H NEGATIVE Urine Glucose (UA) NEGATIVE NEGATIVE Urine Ketones NEGATIVE NEGATIVE Urine Nitrite NEGATIVE NEGATIVE Urine Bilirubin NEGATIVE NEGATIVE Urine Urobilinogen 0.2 < = 1.0 MG/DL Urine Leukocyte Esterase TRACE H NEGATIVE Urine RBC (Auto) 3+ H NEGATIVE Urine RBC 50-100 H /HPF Urine WBC 10-25 H /HPF Urine Squamous Epithelial Cells 10-25 H /HPF Urine Crystals NONE /LPF Urine Bacteria FEW H /HPF Urine Casts NONE /LPF Urine Mucus NEGATIVE /LPF Urine Culture Indicated YES Urine Opiates Screen POSITIVE H NEGATIVE Urine Oxycodone Screen POSITIVE H NEGATIVE Urine Methadone Screen NEGATIVE NEGATIVE Urine Propoxyphene Screen NEGATIVE NEGATIVE Urine Barbiturates Screen NEGATIVE NEGATIVE Ur Tricyclic Antidepressants Screen NEGATIVE NEGATIVE Urine Phencyclidine Screen NEGATIVE NEGATIVE Urine Amphetamines Screen NEGATIVE NEGATIVE Urine Methamphetamines Screen NEGATIVE NEGATIVE Urine Benzodiazepines Screen NEGATIVE NEGATIVE Urine Cocaine Screen NEGATIVE NEGATIVE Urine Cannabinoids Screen NEGATIVE NEGATIVE White Blood Count 8.9 4.3-11.0 10^3/uL Red Blood Count 5.36 4.35-5.85 10^6/uL Hemoglobin 13.9 11.5-16.0 G/DL Hematocrit 44 35-52 % Mean Corpuscular Volume 82 80-99 FL Mean Corpuscular Hemoglobin 26 25-34 PG Mean Corpuscular Hemoglobin Concent 32 32-36 G/DL Red Cell Distribution Width 14.4 10.0-14.5 % Platelet Count 359 130-400 10^3/uL Mean Platelet Volume 10.5 H 7.4-10.4 FL Neutrophils (%) (Auto) 78 H 42-75 % Lymphocytes (%) (Auto) 17 12-44 % Monocytes (%) (Auto) 4 0-12 % Eosinophils (%) (Auto) 1 0-10 % Basophils (%) (Auto) 1 0-10 % Neutrophils # (Auto) 6.9 1.8-7.8 X 10^3 Lymphocytes # (Auto) 1.5 1.0-4.0 X 10^3 Monocytes # (Auto) 0.3 0.0-1.0 X 10^3 Eosinophils # (Auto) 0.1 0.0-0.3 10^3/uL Basophils # (Auto) 0.1 0.0-0.1 10^3/uL Sodium Level 137 135-145 MMOL/L Potassium Level 4.8 3.6-5.0 MMOL/L Chloride Level 106 98-107 MMOL/L Carbon Dioxide Level 25 21-32 MMOL/L Anion Gap 6 5-14 MMOL/L Blood Urea Nitrogen 32 H 7-18 MG/DL Creatinine 2.74 H 0.60-1.30 MG/DL Estimat Glomerular Filtration Rate 21 BUN/Creatinine Ratio 12 Glucose Level 94 70-105 MG/DL Calcium Level 9.3 8.5-10.1 MG/DL Corrected Calcium 9.5 8.5-10.1 MG/DL Total Bilirubin 0.3 0.1-1.0 MG/DL Aspartate Amino Transf (AST/SGOT) 92 H 5-34 U/L Alanine Aminotransferase (ALT/SGPT) 76 H 0-55 U/L Alkaline Phosphatase 176 H 40-136 U/L Total Protein 8.1 6.4-8.2 GM/DL Albumin 3.8 3.2-4.5 GM/DL Amylase Level 75 25-125 U/L Lipase 22 8-78 U/L Micro Results Microbiology 05/26/19 Urine Culture - Final, Complete 3 or more isolates My Orders Orders - SHADE MORALES DO Ed Iv/Invasive Line Start (05/26/19 15:48) Urine Bedside (05/26/19 15:48) Amylase (05/26/19 15:48) Cbc With Automated Diff (05/26/19 15:48) Comprehensive Metabolic Panel (05/26/19 15:48) Lipase (05/26/19 15:48) Ua Culture If Indicated (05/26/19 15:48) Ct Abd/Pelvis Wo(Kidney Stone) (05/26/19 16:00) Abdomen/Kub 1view (05/26/19 16:00) Urine Culture (05/26/19 15:52) Ceftriaxone For Iv Use (Rocephin For I (05/26/19 16:45) Orphenadrine Injection (Norflex Injectio (05/26/19 16:45) Hydralazine Injection (Apresoline Inject (05/26/19 16:45) Drug Screen Stat (Urine) (05/26/19 16:38) Fentanyl Injection (Sublimaze Injection (05/26/19 17:15) Lorazepam Injection (Ativan Injection) (05/26/19 17:30) Labetalol Injection (Normodyne Injection (05/26/19 18:15) Ondansetron Injection (Zofran Injectio (05/26/19 18:15) Fentanyl Injection (Sublimaze Injection (05/26/19 18:15) Hydralazine Injection (Apresoline Inject (05/26/19 19:00) Labetalol Injection (Normodyne Injection (05/26/19 19:00) Ns (Ivpb) (Sodium C... W/Nicardipine Iv (05/26/19 19:30) Medications Given in ED Vital Signs/I&O 05/26/19 05/27/19 15:37 00:10 Temp 36.2 36.2 Pulse 82 82 Resp 20 20 B/P (MAP) 231/167 (188) 129/89 (188) Pulse Ox 97 98 O2 Delivery Room Air Room Air 05/27/19 00:00 Intake Total 10 ml Balance 10 ml Blood Pressure Mean: 188 Progress Progress Note : Progress Note PT NOTED TO BE REPEATEDLY, INTENTIONALLY, HOLDING HER ARMS VERY STIFFLY AGAINST THE ER CART, WHILE BP IS BEING TAKING. REPEATEDLY ASKED TO RELAX ARM WHILE BP IS BEING READ, AND PT REFUSES TO COMPLY. PT WILL RELAX ARM WHEN BP IS NOT BEING TAKEN PT REPEATEDLY STATES THAT HER BP IS ONLY HIGH BECAUSE SHE IS IN PAIN, AND IS "NORMAL" WHEN SHE IS NOT IN PAIN. STATES SHE HAS NOT HAD ANY CHANGES IN HER BP MEDICATION OR MISSED DOSES, PT IS WEARING A CLONIDINE PATCH PT STATES PAIN MEDICATION IS THE ONLY THING THAT WILL BRING HER BP DOWN PT WITH ESCALATING, VERY DRAMATIC BEHAVIOR--NOW WITH CRYING, TENSING ENTIRE BODY UP, ETC. GIVEN ATIVAN, FENTANYL AND HYDRALAZINE--WITH IMPROVEMENT IN SYMPTOMS AND BP DOWN TO 200/160 RANGE, STATES SHE IS STILL NAUSEATED, AND STILL IN PAIN, BUT PT APPEARS A LITTLE MORE RELAXED AND IS NOW LAYING DOWN ON ER CART. ADDITIONAL LABETALOL, FENTANYL AND ZOFRAN GIVEN BP CONTINUES TO STAY ELEVATED, AND EVEN GO BACK UP, PT BEGINS TO ESCALATE AGAIN--NOW STATING THAT SHE IS OUT OF HER PAIN MEDICATION AND "WHAT IS SHE SUPPOSED TO DO WHEN SHE GETS HOME, HER BLOOD PRESSURE'S JUST GOING TO GO UP" BP, AT TIMES HAS BEEN TOO HIGH FOR MACHINE TO READ DURING STAY BEGAN TO GO DOWN AND THEN BACK UP--TO 200'S/140-160'S. CARDENE DRIP STARTED. GRADUAL DECREASE IN PRESSURE Diagnostic Imaging Comments KUB--MARKED AMOUNT OF STOOL IN COLON, C/W CONSTIPATION, PER RADIOLOGIST REPORT CT ABDOMEN/PELVIS--NO ACUTE PROCESS, MODERATE AMOUNT OF COLONIC STOOL AND AIR. NO RENAL / URETERAL CALCULI OR HYDRONEPHROSIS. PER RADIOLOGIST REPORT AT 1635 Reviewed: Reviewed by Me Departure Communication (Admissions) 1917--[facility]ED [facility], DR. FUNEZ. PT PREFERENCE , ALL OF HER PHYSICIANS ARE AT [facility]. 1923--SPOKE WITH DR. FUNEZ, ACCEPTS PT FOR ADMIT /TRANSFER.HE IS VERY FAMILIAR WITH PT AND ADVISES NO ADDITIONAL PAIN MEDICATION BE GIVEN TO PT. Impression Primary Impression: Hypertensive urgency Additional Impressions: Urinary tract infection Constipation LOWER ABDOMINAL AND LEFT FLANK PAIN Chronic renal failure Chronic narcotic use Disposition: XFER SHT-TRM HOSP Condition: Stable Transfer Transfer Reason: Exceeds level of care Transfer Facility: [facility] Method of Transfer: EMS Departure-Patient Inst. Referrals: NO,LOCAL PHYSICIAN (PCP/Family) Primary Care Physician Add. Discharge Instructions: All discharge instructions reviewed with patient and/or family. Voiced understanding. SHADE MORALES DO May 26, 2019 16:00
[2019-05-26 16:08] LABS: BASOPHILS # (AUTO) 0.1 10^3/uL (0.0-0.1); BASOPHILS % (AUTO) 1 % (0-10); EOSINOPHILS # (AUTO) 0.1 10^3/uL (0.0-0.3); EOSINOPHILS % (AUTO) 1 % (0-10); HEMATOCRIT 44 % (35-52); HEMOGLOBIN 13.9 G/DL (11.5-16.0); LYMPHOCYTES # (AUTO) 1.5 X 10^3 (1.0-4.0); LYMPHOCYTES % (AUTO) 17 % (12-44); MEAN CORPUSCULAR HEMOGLOBIN 26 PG (25-34); MEAN CORPUSCULAR HGB CONC 32 G/DL (32-36); MEAN CORPUSCULAR VOLUME 82 FL (80-99); MEAN PLATELET VOLUME 10.5 FL (7.4-10.4); MONOCYTES # (AUTO) 0.3 X 10^3 (0.0-1.0); MONOCYTES % (AUTO) 4 % (0-12); NEUTROPHILS # (AUTO) 6.9 X 10^3 (1.8-7.8); NEUTROPHILS % (AUTO) 78 % (42-75); PLATELET COUNT 359 10^3/uL (130-400); RED CELL DISTRIBUTION WIDTH 14.4 % (10.0-14.5); WHITE BLOOD COUNT 8.9 10^3/uL (4.3-11.0)
[2019-05-26 16:14] LABS: RBC,URINE 50-100 /HPF
[2019-05-26 16:15] LABS: BACTERIA,URINE FEW /HPF
[2019-05-26 16:29] LABS: ALBUMIN 3.8 GM/DL (3.2-4.5); BILIRUBIN,TOTAL 0.3 MG/DL (0.1-1.0); CALCIUM 9.3 MG/DL (8.5-10.1); CREATININE SERUM 2.74 MG/DL (0.60-1.30); POTASSIUM 4.8 MMOL/L (3.6-5.0); TOTAL PROTEIN 8.1 GM/DL (6.4-8.2)
--- NOTE | 2019-05-26 16:29 | Diagnostic Imaging Report ---
INDICATION: Abdominal pain. TECHNIQUE: An abdominal film was obtained at 4:21 PM. FINDINGS: There is a large amount of stool throughout the colon, compatible with constipation. There are no suspicious calcifications. There are surgical clips in the right upper quadrant. The bony structures visualized are unremarkable. IMPRESSION: Marked amount of stool in the colon, compatible with constipation. No obstruction or suspicious calcification. Dictated by: Dictated on workstation # [id number]
--- NOTE | 2019-05-26 16:29 | Diagnostic Imaging Report ---
PROCEDURE: CT urinary tract, rule out kidney stone. TECHNIQUE: Multiple contiguous axial images were obtained through the abdomen and pelvis without the use of intravenous contrast. Auto Exposure Controls were utilized during the CT exam to meet ALARA standards for radiation dose reduction. INDICATION: Lower abdominal pain. Left-sided flank pain. COMPARISON: None FINDINGS: Included portions of the lung bases are clear. CT ABDOMEN: Moderate air and stool is noted within the colon. Normal appendix is identified. Small bowel loops are nondistended. Ureters could not be followed in their entirety, but no calculi are seen along the expected course of either ureter. No renal calculi identified on either side. Additionally, there is no hydronephrosis or other evidence of obstruction. No renal masses are identified on this noncontrast exam. The adrenal glands, spleen, pancreas, and liver have an unremarkable noncontrast CT appearance. There is no loculated fluid collection, free fluid, nor free air within the abdomen. No abnormal mesenteric or retroperitoneal adenopathy is seen. Osseous structures show no acute abnormalities. CT PELVIS: Urinary bladder is unopacified and minimally distended. No calculi are seen within the urinary bladder. There is trace amount of free fluid within the pelvis. There is no loculated fluid collection or free air. No abnormal lymph nodes are seen. Osseous structures show no acute abnormalities. IMPRESSION: 1. Small amount of free fluid within the pelvis; possibly physiologic. 2. Otherwise, no acute abnormalities are seen within the abdomen or pelvis. 3. Moderate colonic air and stool. Please correlate for constipation. Dictated by: Dictated on workstation # [id number]
[2019-05-26] MEDS ORDERED: cefTRIAXone FOR IV USE 1,000 MG in WATER (STERILE) FOR INJECTION 10 ML IV ONE (16:45)
[2019-05-26] MEDS ORDERED: hydrALAZINE (APESOLINE) 20 MG/ML VIAL IV ONE ×2 (16:45→19:00)
[2019-05-26] MEDS ORDERED: ORPHENADRINE 60 MG/2 ML (NORFLEX) AMP IV ONE (16:45)
--- NOTE | 2019-05-26 16:58 | NUR ---
Patient given medications. Patient very tearful and states the medications are not helping and they made her cramping pain in her abdomen worse. She states the pain is making it hard for her to breath. RN observes the patient stiffening her arm with each blood pressure check. Patient was advised to try to keep the arm relaxed during blood pressure checks.
[2019-05-26 17:01] LABS: AMPHETAMINE SCREEN, URINE NEGATIVE (NEGATIVE); BARBITURATE SCREEN URINE NEGATIVE (NEGATIVE); BENZODIAZEPINES SCREEN URINE NEGATIVE (NEGATIVE); CANNABINOID SCREEN, URINE NEGATIVE (NEGATIVE); COCAINE SCREEN URINE NEGATIVE (NEGATIVE); METHADONE STAT NEGATIVE (NEGATIVE); METHAMPHETAMINE SCREEN URINE S NEGATIVE (NEGATIVE); OPIATE SCREEN URINE POSITIVE (NEGATIVE); OXYCODONE STAT POSITIVE (NEGATIVE); PROPOXYPHENE STAT NEGATIVE (NEGATIVE); TRICYCLIC ANTIDEPRESSANTS SCRE NEGATIVE (NEGATIVE)
[2019-05-26] MEDS ORDERED: fentaNYL INJECTION 100 MCG/2 ML AMP IVP ONE ×2 (17:15→18:15)
[2019-05-26] MEDS ORDERED: TIZA4TAB11 PO (17:15)
[2019-05-26] MEDS ORDERED: LORazepam INJ 2 MG/ML (ATIVAN) VIAL IVP ONE (17:30)
[2019-05-26] MEDS ORDERED: LABETALOL HCL 20 MG/4 ML VIAL IV ONE ×2 (18:15→19:00)
[2019-05-26] MEDS ORDERED: ONDANSETRON 4 MG/2 ML (SDV) Z0FRAN IVP ONE (18:15)
--- NOTE | 2019-05-26 18:58 | NUR ---
Received report from Emily Hutchins RN at this time to assume care of pt.
[2019-05-26] MEDS ORDERED: niCARdipine IV 50 MG in NS (IVPB) 230 ML IV SCH (19:30)
--- NOTE | 2019-05-26 19:32 | NUR ---
Consent to transfer to [facility] obtained at this time, witnessed by this RN.
--- NOTE | 2019-05-26 19:53 | NUR ---
Cardene drip titrated 2.5mg/hr at this time per Dr. Chen's orders. Drip now running at 7.5mg/hr. BP 164/114 at time of drip increase.
--- NOTE | 2019-05-26 20:16 | NUR ---
BP 143/96 at this time. Cardene drip rate maintained at 7.5mg/hr.
--- NOTE | 2019-05-26 21:11 | NUR ---
Received rm assignment from [facility] nurse. [place] contacted.
--- NOTE | 2019-05-26 21:16 | NUR ---
Report called to RADHA Andre at [facility] at this time.
--- NOTE | 2019-05-26 21:17 | NUR ---
[facility] Ok. declined transfer. Contacting [facility] dispatch at this time.
--- NOTE | 2019-05-26 21:40 | NUR ---
Trace from [facility] called with ETA of 2330 for pt transport. Pt notified of update.
--- NOTE | 2019-05-26 23:33 | NUR ---
Savitaene drip decreased per Dr. Corea's orders. Drip rate now 5mg/hr. BP 129/89 prior to decrease.
[2019-05-27 00:10] VITALS: BP 129/89
== END 2019-05-26 23:52 | disposition short-term general hospital (02) ==
LOC: EDUNIT# 15:35 → ER 15:36
DX: I16.0 Hypertensive urgency (principal); N39.0 Urinary tract infection, site not specified; K59.00 Constipation, unspecified; I13.0 Hypertensive heart and chronic kidney disease with heart failure and stage 1 through stage 4 chronic kidney disease, or unspecified chronic kidney disease; N18.9 Chronic kidney disease, unspecified; I50.9 Heart failure, unspecified; F11.90 Opioid use, unspecified, uncomplicated; I25.2 Old myocardial infarction; Z88.6 Allergy status to analgesic agent; Z86.73 Personal history of transient ischemic attack (TIA), and cerebral infarction without residual deficits; Z77.22 Contact with and (suspected) exposure to environmental tobacco smoke (acute) (chronic)
CPT/HCPCS: 36415; 74018; 74176; 80053; 80306; 81000; 82150; 83690; 84703; 85025; 87088